=== PATIENT | female | born 1965 | race Caucasian/White ===

== ENCOUNTER → 2017-05-27 | Day surgery (SDC) | payer OTHER ==
[~2017-05-27] MED LIST: AMITIZA24 MCG PO; DESYREL50 MG PO; HYDROXYZINE HCL25 M1 PO; LINZESS145 MCG PO; LOPID600 MG PO; OMEPRAZOLE20 M2 PO; PRAVACHOL PO; SYNTHROID0.15 MG PO; SYNTHROID125 PO; VEGETABLE PO; ZOLOFT100 MG PO
--- NOTE | ~2017-05-27 | OR ---
Unit #: [id number] #: [id number] Patient: JOANNA PORRAS [id number] [address] [address] [id number] O MR#: [id number] NAME: JOANNA PORRAS ROOM: Date of Procedure: 05/27/2017 Admission Date: 05/27/2017 Surgeon: Werner Aleman M.D. : 1965 Attending Physician: Werner Aleman M.D. Referring Physician: Werner Aleman M.D. Primary Care Physician: Primary Care Physician No OPERATIVE REPORT PROCEDURE PERFORMED Esophagogastroduodenoscopy with biopsies. INDICATIONS FOR PROCEDURE The patient with dyspepsia, bloating, and gas, undergoing evaluation with upper endoscopy. MEDICATIONS Monitored anesthesia. POSTOPERATIVE FINDINGS 1. Normal esophagus. 2. Mild chronic appearing gastritis. Biopsies taken. 3. Normal duodenum and distal duodenum. PLAN Continue with PPI therapy. Follow up on pathology report. DESCRIPTION OF PROCEDURE The patient was explained of the procedure risks and benefits along with risks and benefits of anesthesia. She was brought to the endoscopy room. Propofol anesthesia was given. Bite block was placed. The scope was passed down the mouth into esophagus, stomach, duodenum, and distal duodenum. Findings as described. Biopsies taken. Gently, I pulled the scope out of the patient's mouth. She tolerated it well. Dictated by... Bill Patel/mare TD: 05/27/2017 16:12 JOB #: [id number] CC: Iona De La O M.D. Unit #: [id number] #: [id number] Patient: JOANNA PORRAS OPERATIVE REPORT Page 1 of 1 X Werner Aleman MD PROCEDURE OPERATIVE NOTE
== END | disposition home or self-care (01) ==
LOC: COPS 08:00
DX: K29.50 Unspecified chronic gastritis without bleeding (principal); E03.9 Hypothyroidism, unspecified; E78.5 Hyperlipidemia, unspecified; Z87.19 Personal history of other diseases of the digestive system; Z90.710 Acquired absence of both cervix and uterus; Z88.2 Allergy status to sulfonamides; Z79.899 Other long term (current) drug therapy
CPT/HCPCS: 88305; 88312